=== PATIENT | female | born 1980 | race Caucasian/White ===

== ENCOUNTER 2016-06-11 | Emergency (ER) | payer MEDICAID ==
--- NOTE | 2016-06-13 19:16 | ER ---
ADMIT: 06/11/2016 RM/LOC: ER [facility] MR#: [id number] [id number] [place], [place] [id number] KEN MARTINO [address] [place] [address] [place] [address] Emergency Room Report SEX: F AGE: 36 : 1980 DATE: 06/11/2016 For chief complaint, history of present illness, past medical history, medications, allergies, review of systems, including physical exam, please see my T-sheet. INTERIM HISTORY: The patient is a 36-year-old white female, who comes in today with a sore throat. The patient states that it has been going on for about 3 days. She thinks maybe she scratched the roof of her mouth with a chip and she has just gotten progressively worse. Tonight started burning. PHYSICAL EXAMINATION: VITAL SIGNS: Stable. HEENT: She has an abrasion to the soft palate and the posterior pharynx with significant erythema concerning maybe for a little cellulitis or maybe a developing strep. She has no tonsils, but reports no history of surgery on her tonsils. IMPRESSION: 1. Pharyngitis. 2. A scratch to the roof of the mouth. Home, rest. Activity as tolerated. Clear liquid diet. Drink plenty of fluids. Follow up with the primary care if symptoms or problems persist or worsen. EDIT: 06/11/2016 0627 njv ANGELA Fragoso / Michael Cee MD / kole JOB #: [id number] CC: Michael Cee MD, Attending Physician Flex Hugo MD, Family Physician
== END 2016-06-11 00:50 | disposition home or self-care (01) ==
LOC: ER
DX: J02.9 Acute pharyngitis, unspecified (principal)

== ENCOUNTER 2016-07-28 10:05 | Emergency (ER) | payer MEDICAID ==
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
== END 2016-07-28 10:45 | disposition home or self-care (01) ==
LOC: ER 10:05
DX: S00.91XA Abrasion of unspecified part of head, initial encounter (principal); F17.210 Nicotine dependence, cigarettes, uncomplicated; G89.29 Other chronic pain; M54.9 Dorsalgia, unspecified; F32.9 Major depressive disorder, single episode, unspecified; F41.9 Anxiety disorder, unspecified; Z88.0 Allergy status to penicillin; Z88.2 Allergy status to sulfonamides; Z79.899 Other long term (current) drug therapy; V49.40XA Driver injured in collision with unspecified motor vehicles in traffic accident, initial encounter